=== PATIENT | male | born 1930 | race Caucasian/White ===

== ENCOUNTER → 2017-06-25 | Outpatient (CLI) | payer OTHER | END | disposition home or self-care (01) | LOC: PCVCCLINIC 10:47 | DX: I48.0 Paroxysmal atrial fibrillation (principal); I10 Essential (primary) hypertension; E78.00 Pure hypercholesterolemia, unspecified; I70.0 Atherosclerosis of aorta; Z79.899 Other long term (current) drug therapy | CPT/HCPCS: 80061; 93005; G0463 ==